=== PATIENT | male | born 1995 | race Caucasian/White ===

== ENCOUNTER 2017-02-10 13:44 | Emergency (ER) | payer BC ==
[2017-02-10 13:53] VITALS: BP 133/74
--- NOTE | 2017-02-10 14:14 | RAD ---
INDICATION: Evaluate for pneumothorax. History of right-sided pneumothorax. COMPARISON: Chest x-ray November 13, 2015 TECHNIQUE: PA and lateral dual-energy views were obtained. FINDINGS: Bones/Soft Tissues: There are no acute bony findings. Cardiomediastinal: The cardiomediastinal silhouette is normal. Lungs: There are no infiltrates. There is a small left-sided pneumothorax. There is 1.6 cm of visceral-parietal surface separation at the apex. There is resolution of the right-sided pneumothorax. Pleura: There are no pleural effusions. Other: None IMPRESSION: SMALL LEFT-SIDED PNEUMOTHORAX.
--- NOTE | 2017-02-10 14:55 | UC ---
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 HAD A SPONTANEOUS RIGHT SIDED PNEUMOTHX 11/2015 AND THIS FEELS THE SAME ONLY LEFT SIDED. NO FEVER, N/V. - History of Current Complaint Chief Complaint: UCChestPain Stated Complaint: CHEST PAIN, DIFFICULTY BREATHING Time Seen by Provider: 02/10/17 14:53 Hx Obtained From: Patient Onset/Duration: Sudden Onset, Lasting Minutes, Still Present Timing: Constant Current Severity: Moderate Dyspnea At: Rest Aggrevating Factors: Deep Breaths Alleviating Factors: Nothing Associated Signs & Symptoms: Negative: Fever, Chills, Diaphoresis, Dizzy Related History: Similar Episode - 11/2015 - RIGHT SIDED PNEUMOTHORAX 2.5CM - Allergy/Home Medications Allergies/Adverse Reactions: Allergies Allergy/AdvReac Type Severity Reaction Status Date / Time STEROIDS Allergy Rash Uncoded 11/18/16 11:05 PMH/Surg Hx/FS Hx/Imm Hx - Additional Past Medical History Additional PMH: SPONTANEOUS PNEUMOTHORAX 2014 Endocrine History Of: Denies: Diabetes, Thyroid Disease Cardiovascular History Of: Denies: Cardiac Disorders, Hypertension, Pacemaker/ICD Respiratory History Of: Reports: Asthma Denies: COPD GI/ History Of: Denies: Ulcer - Surgical History Surgical History: None - Family History Known Family History: Positive: Unknown - PT ADOPTED - Social History Alcohol Use: None Substance Use Type: None Smoking Status (MU): Never Smoked Tobacco Review of Systems Constitutional: Negative Respiratory: Shortness Of Breath Cardiovascular: Chest Pain Gastrointestinal: Negative All Other Systems Reviewed And Are Negative: Yes Physical Exam Triage Information Reviewed: Yes Appearance: Well-Appearing, No Pain Distress, Well-Nourished Vital Signs: Initial Vital Signs Temp 97.7 F 02/10/17 13:49 Pulse 88 02/10/17 13:49 Resp 20 02/10/17 13:49 BP 133/74 02/10/17 13:49 Pulse Ox 98 02/10/17 13:49 Eyes: Positive: Conjunctiva Clear ENT: Positive: Hearing grossly normal Neck: Positive: Supple Respiratory: Positive: Lungs clear, No respiratory distress, No accessory muscle use, Decreased breath sounds - LEFT APEX SLIGHTLY DIMINISHED Cardiovascular Exam: Normal Abdomen Description: Positive: Bruit Musculoskeletal: Positive: No Edema Neurological: Positive: Alert Psychological: Positive: Age Appropriate Behavior Skin: Negative: rashes Diagnostics - Radiology CHEST XRAY Xray Interpretation: Positive (See Comments) - SMALL 1.6CM LEFT-SIDED PNEUMOTHORAX. Radiology Interpretation Completed By: Radiologist Shortness of Breath Dx - Differential Dx/Diagnosis Provider Diagnoses: SPONTANEOUS LEFT SIDED PNEUMOTHORAX 1.6CM - Physician Notification/Consults Discussed Patient Care With: RAFFI ABDI Time Discussed With Above Provider: 15:08 - TO [facility] BY PRIVATE CAR Discharge - Discharge Plan Condition: Stable Disposition: AGAINST MEDICAL ADVICE Referrals: Oracio Haider MD [Primary Care Provider] -
== END 2017-02-10 15:19 | disposition left against medical advice (07) ==
LOC: UCEAST 13:44
DX: J93.9 Pneumothorax, unspecified (principal); Z53.21 Procedure and treatment not carried out due to patient leaving prior to being seen by health care provider
CPT/HCPCS: 71020

== ENCOUNTER 2017-02-10 15:33 | Emergency (ER) | payer BC ==
[2017-02-10] MEDS ORDERED: oxyCODONE/Acetamin 5/325 MG* TAB PO ONE (17:12)
--- NOTE | 2017-02-10 17:49 | RAD ---
INDICATION: Follow-up left-sided pneumothorax COMPARISON: Same day chest x-ray acquired at 1355 hours TECHNIQUE: PA and lateral views of the chest were obtained. FINDINGS: The heart and mediastinum are normal in size and contour. On the inspiration views there is a small left-sided pneumothorax with the lung apex measuring 2.5 cm from the apex of the chest wall. The pneumothorax increases to 3.7 cm on the expiration views. Visualized bones are normal for the patient's age. There is no radiographic evidence of free air beneath the diaphragm IMPRESSION: THERE IS BEEN SMALL INTERVAL INCREASE IN THE SIZE OF THE LEFT-SIDED PNEUMOTHORAX RELATIVE TO THE CHEST X-RAY ACQUIRED AT 1355 HOURS.
[2017-02-10] MEDS ORDERED: NS 0.9% 1000 ML* 1,000 ML IV ONE (19:34)
--- NOTE | 2017-02-10 20:56 | RAD ---
Indication: LEFT pneumothorax. Post chest tube placement. Comparison: February 10, 2017 1731 hours Technique: Inspiratory and expiratory upright PA chest radiographs. Report: Heimlich valve small caliber LEFT apical chest tube in place. Minimal LEFT apical pneumothorax visualized at the level of the posterior segment of the LEFT third rib significantly decreased compared with the prior exam. Negative for increase in size of the pneumothorax on expiration. Negative for mediastinal shift. Potential small bilateral apical blebs. Clear pleural spaces. The heart, pulmonary vasculature, and mediastinal contours are unremarkable. No rib fracture evident. IMPRESSION: Near complete resolution of LEFT pneumothorax post Heimlich valve LEFT apical chest tube placement.
[2017-02-10 21:22] VITALS: BP 126/62
--- NOTE | 2017-02-11 07:32 | ED ---
Shaun Ly Billy, scribed for Dwaine Broussard MD on 02/10/17 at 1600 . Shortness of Breath - HPI Summary HPI Summary: Patient is a 21 year-old male with a history of pneumothorax coming to [facility] with a complaint of shortness of breath that started suddenly with no known cause earlier today. Patient was seen at [facility], where a chest x-ray revealed a small left pneumothorax. He was transferred here to the ED for further workup and evaluation. Here in the ED, he continues to complain of shortness of breath , saying that he has difficulty with deep breaths. He also reports mild chest pain, but otherwise states that he is quite comfortable. - History of Current Complaint Chief Complaint: EDShortnessOfBreath Time Seen by Provider: 02/10/17 15:44 Hx Obtained From: Patient Onset/Duration: Sudden Onset Timing: Constant Current Severity: Moderate Dyspnea At: Rest Aggrevating Factors: Nothing Alleviating Factors: Nothing - Allergy/Home Medications Allergies/Adverse Reactions: Allergies Allergy/AdvReac Type Severity Reaction Status Date / Time STEROIDS Allergy Rash Uncoded 11/18/16 11:05 PMH/Surg Hx/FS Hx/Imm Hx Endocrine/Hematology History: Denies: Hx Diabetes, Hx Thyroid Disease Cardiovascular History: Denies: Hx Hypertension, Hx Pacemaker/ICD, Other Cardiovascular Problems/ Disorders Respiratory History: Reports: Hx Asthma Denies: Hx Chronic Obstructive Pulmonary Disease (COPD) GI History: Denies: Hx Ulcer Sensory History: Denies: Hx Hearing Aid Neurological History: Reports: Other Neuro Impairments/Disorders - CONCUSION 2009 Psychiatric History: Reports: Hx Attention Deficit Hyperactivity Disorder Denies: Hx Panic Disorder Infectious Disease History: Denies: Hx Hepatitis, Hx Human Immunodeficiency Virus (HIV), Traveled Outside the [place] in Last 30 Days - Family History Known Family History: Positive: Unknown - PT ADOPTED - Social History Alcohol Use: None Substance Use Type: Reports: None Smoking Status (MU): Never Smoked Tobacco Review of Systems Negative: Fever Positive: Chest Pain Positive: Shortness Of Breath All Other Systems Reviewed And Are Negative: Yes Physical Exam - Summary Physical Exam Summary: VITAL SIGNS: Reviewed. GENERAL: Patient is a well developed, thin male who is lying comfortable in the stretcher. Patient is not in any acute respiratory distress. Speaking in full sentences. HEAD AND FACE: Normocephalic EYES: PERRLA, EOMI x 2. EARS: Hearing grossly intact. MOUTH: Oropharynx within normal limits. NECK: Supple, trachea is midline, no adenopathy, no JVD, no carotid bruit. CHEST: Symmetric, no tenderness at palpation LUNGS: Clear to auscultation bilaterally. No wheezing or crackles. CVS: Regular rate and rhythm, S1 and S2 present, no murmurs or gallops appreciated. ABDOMEN: Soft, non-tender. Bowel sounds are normal. No abdominal abnormal pulsations. EXTREMITIES: Full ROM in all major joints, no edema, no cyanosis or clubbing. NEURO: Alert and oriented x 3. No acute neurological deficits. Speech is normal and follows commands. SKIN: Dry and warm Triage Information Reviewed: Yes Vital Signs On Initial Exam: Initial Vitals Temp Pulse Resp BP Pulse Ox 97.9 F 85 16 112/72 100 02/10/17 15:41 02/10/17 15:41 02/10/17 15:41 02/10/17 15:41 02/10/17 15:41 Vital Signs Reviewed: Yes Diagnostics - Vital Signs Vital Signs Temp Pulse Resp BP Pulse Ox 02/10/17 15:41 97.9 F 85 16 112/72 100 - Laboratory Lab Statement: Any lab studies that have been ordered have been reviewed, and results considered in the medical decision making process. - Radiology CXR Radiology Interpretation Completed By: Radiologist - THERE IS BEEN SMALL INTERVAL INCREASE IN THE SIZE OF THE LEFT-SIDED PNEUMOTHORAX RELATIVE TO THE CHEST X-RAY ACQUIRED AT 1355 HOURS. Re-Evaluation - Re-Evaluation First Eval Re-Evaluation Time: 16:26 Comment: Plan for discharge reviewed and discussed with patient and mother. Second Eval Re-Evaluation Time: 17:54 Comment: CXR report discussed with the patient and mother. Plan for pigtail tube discussed. Course/Dx - Course Assessment/Plan: Patient is a 21 year-old male with a history of pneumothorax coming to [facility] with a complaint of shortness of breath that started suddenly with no known cause earlier today. Patient was seen at [facility], where a chest x- ray revealed a small left pneumothorax. He was transferred here to the ED for further workup and evaluation. Here in the ED, he continues to complain of shortness of breath, saying that he has difficulty with deep breaths. He also reports mild chest pain, but otherwise states that he is quite comfortable. I discussed the findings that the patient is having a pneumothorax with Dr. Hernandez who recommended that he have a repeat CXR 4 hours after the first. Second CXR shows small interval increase to the left-sided pneumothorax. I discussed the findings with Dr. Hernandez and he agrees to see the patient in the ED and do a pigtail tube. Patient will be signed out to Dr. Abreu, the next ER attending at shift change, pending Dr. Hernandez's evaluation and possible pigtail tube placement. - Diagnoses Differential Diagnosis/HQI/PQRI: Positive: Pneumonia, Pneumothorax Provider Diagnoses: Pneumothorax - Physician Notifications Discussed Care of Patient With: Dr. Hernandez (surgeon) @ 1629: patient care discussed. Repeat CXR at 1715, and if no change, follow up with Dr. Casas as outpatient. Dr. Hernandez (surgeon) @ 1753: will see patient in the ED to place pigtail tube. Dr. Hernandez (surgeon) @ 1908: arrived in the ED. Discharge - Discharge Plan Condition: Stable Disposition: HOME Discharge Disposition Comment: Signed out to Dr. Abreu pending surgeon's evaluation. Patient Education Materials: Spontaneous Pneumothorax (ED) Referrals: Memo Hernandez MD [Medical Doctor] - 1 Day (Follow up with Dr. Hernandez, surgery, tomorrow.) Oracio Haider MD [Primary Care Provider] - The documentation as recorded by the Shaun salas Billy accurately reflects the service I personally performed and the decisions made by me, Dwaine Broussard MD.
--- NOTE | 2017-02-11 10:13 | CONS ---
SURGICAL CONSULTATION AND PROCEDURE NOTE: DATE OF CONSULT: 02/10/17 LOCATION: Emergency room. HISTORY OF PRESENT ILLNESS: I was contacted by the emergency room staff to evaluate Sarmad Mitchell who presented earlier today to Urgent Care with complaints of sudden shortness of breath and left-sided chest discomfort. Workup included an x-ray which showed a left-sided pneumothorax felt to be spontaneous. The patient has a history of a right-sided spontaneous pneumothorax approximately 13 months ago. I reviewed the images and noted that it was a small left-sided pneumothorax. The patient was transferred to the ER from Urgent Care, and I made the recommendation for a followup chest x-ray which happened approximately 4 hours later. This x-ray again was also reviewed and showed an increase in size of the left-sided pneumothorax. The patient described that he had been feeling somewhat better since the onset of the symptoms. He did not require oxygenation. His pain resolved. The patient described similar symptoms last year when he was diagnosed with a right- sided pneumothorax. This was treated without any intervention. PAST MEDICAL HISTORY: Asthma. PAST SURGICAL HISTORY: None. MEDICATIONS: 1. Albuterol. 2. Vyvanse. ALLERGIES: He is ALLERGIC TO STEROIDS. FAMILY HISTORY: Noncontributory. The patient is adopted. SOCIAL HISTORY: He does not smoke, drink, or do IV drugs. He is a student of [employer]. Lives with his aunt. He does not do drugs. He denies any use of a water pipe. No recent traumas. REVIEW OF SYSTEMS: No fevers, no chills. Shortness of breath as described. No palpitations, but chest pain as described above. No abdominal complaints. No significant weight loss or weight gain. No metabolic disorders. Never been worked up for any Marfan-type diseases. He does seem to suffer from anxiety. PHYSICAL EXAM: He is 5 feet 7 inches, 108 pounds. His body mass index is 17. Afebrile. Vital signs are stable. Temperature 99.1. Alert and oriented x3, in no apparent distress. Head, Ears, Eyes and Throat: Normocephalic, atraumatic. Sclerae anicteric. Mucous membranes are dry. Chest: Clear breath sounds bilaterally. No pain. No crepitance. Trachea midline. Abdomen without any positive findings. Extremities: Within normal limits. DIAGNOSTIC STUDIES/LAB DATA: Chest x-ray is reviewed. IMPRESSION: Spontaneous pneumothorax on the left in patient with body mass index 17 and a history of spontaneous pneumothorax on the right in the past treated nonoperatively. This has gotten larger in size over the course of the day, and I recommend intervention, namely a pneumothorax kit tube placement. DESCRIPTION OF PROCEDURE: I outlined the details of the procedure going over the risks, benefits and alternatives to the patient and his aunt, they agreed with the procedure. He was marked on the left side of the chest. Time-out was performed appropriately after the area was prepped thoroughly and draped. Injection of lidocaine along the proposed incision site at the second intercostal space along the mid clavicular line was made. Once the incision was made, the Heimlich valve type tubing was placed into the left chest, allowed to advance over the needle stylet. A gush of air was encountered and this was connected to the appropriate tubing and sutured to the skin with the provided silk suture. Sterile dressing was applied. Upon completion of the procedure, the patient was diaphoretic, clammy, speaking normally, but had a systolic blood pressure in the low 60s with a heart rate that remained in the 60s. The emergency room physician was contacted. Plan was for a bolus of fluid. PLAN: Plan at this point will be to have patient recover from what appears to be a vasovagal response. I do not believe this is suggestive of any ongoing chest bleeding or any complication of the procedure at this point. The patient will receive a chest x-ray shortly. If the chest x-ray shows improvement, then we will look towards sending patient home with the Heimlich valve. I have given him our phone number to our office. He will contact our office and set up an appointment on Wednesday. He will have to get a chest x-ray prior to that appointment. The patient is aware of this. This case was discussed with the emergency room doctor who will, in all likelihood, discharge the patient later today. If the chest x-ray shows no improvement, the patient may require admission or placement of the tubing to Pleur-evac, or even a larger caliber chest tube. He is aware of this plan. CC: Oracio Haider; [facility].* [id number] #: [id number]
== END 2017-02-10 21:22 | disposition home or self-care (01) ==
LOC: ED 15:33
DX: J93.9 Pneumothorax, unspecified (principal); R06.02 Shortness of breath; R07.9 Chest pain, unspecified
CPT/HCPCS: 71020; 99285; A9270-GY

== ENCOUNTER 2018-03-25 09:23 | Emergency (ER) | payer BC ==
[2018-03-25 09:49] VITALS: BP 114/71
--- NOTE | 2018-03-25 09:51 | UC ---
Respiratory Complaint HPI - HPI Summary HPI Summary: 22 yo male presents with feeling "popping" sensations in his anterior right lung intermittently over the last week. He tells me that he has had 2 events of spontaneous pneumothorax in the past - most recent was about a year ago in his left lung that required surgery. He called his surgeon about this RIGHT lung popping sensation today and was advised to get a CXR for evaluation. Currently he denies fever, chills, cough, SOB, FRIEDMAN. - History of Current Complaint Chief Complaint: UCRespiratory Stated Complaint: POPPING IN LUNG Time Seen by Provider: 03/25/18 09:51 Hx Obtained From: Patient Severity Initially: Moderate Severity Currently: Severe Pain Intensity: 7 Pain Scale Used: 0-10 Numeric - Allergies/Home Medications Allergies/Adverse Reactions: Allergies Allergy/AdvReac Type Severity Reaction Status Date / Time sulfamethoxazole Allergy Intermediate Rash Verified 03/25/18 09:51 montelukast Allergy Mild Unknown Verified 03/25/18 09:51 Reaction Details PMH/Surg Hx/FS Hx/Imm Hx - Additional Past Medical History Additional PMH: Left lung pneumothroax Previously Healthy: Yes - Surgical History Surgical History: None Surgery Procedure, Year, and Place: left lung 2017 PThorax - Family History Known Family History: Positive: None, Unknown - PT ADOPTED Family History: NON CONTRIBUTORY - Social History Occupation: Student Lives: With Family Alcohol Use: None Substance Use Type: None Smoking Status (MU): Never Smoked Tobacco - Immunization History Most Recent Influenza Vaccination: 2016 Most Recent Pneumonia Vaccination: none Review of Systems Constitutional: Negative Skin: Negative Respiratory: Other - Right lung "popping" Cardiovascular: Negative Gastrointestinal: Negative Neurovascular: Negative Musculoskeletal: Negative Neurological: Negative Psychological: Negative All Other Systems Reviewed And Are Negative: Yes Physical Exam - Summary Physical Exam Summary: GENERAL: NAD. WDWN. No pain distress. SKIN: No rashes, sores, lesions, or open wounds. HEENT: Head: AT/NC Eyes: EOM intact. Conjunctiva clear without inflammation or discharge. Ears: Hearing grossly normal. TMs intact, no bulging, erythema, or edema. Nose: Nasal mucosa pink and moist. NTTP maxillary and frontal sinus. Throat: Posterior oropharynx without exudates, erythema, or tonsillar enlargement. Uvula midline. NECK: Supple. Nontender. No lymphadenopathy. CHEST: CTAB. No r/r/w. No accessory muscle use. Breathing comfortably and in no distress. CV: RRR. Without m/r/g. Pulses intact. Brisk cap refill. NEURO: Alert. CN II-XII grossly intact. PSYCH: Age appropriate behavior. Triage Information Reviewed: Yes Vital Signs: Initial Vital Signs Temp 99.1 F 03/25/18 09:45 Pulse 67 03/25/18 09:45 Resp 20 03/25/18 09:45 BP 114/71 03/25/18 09:45 Pulse Ox 100 03/25/18 09:45 Vital Signs Reviewed: Yes Diagnostic Evaluation - Laboratory O2 Sat by Pulse Oximetry: 100 Respiratory Course/Dx - Course Course Of Treatment: CXR: IMPRESSION: Hyperinflated lung brizuela without evidence of pneumonia. Spoke to Dr. Maravilla of radiology at 1015 and he did not see any evidence or indication for pneumothroax. No Chest CT indicated. Exam WNL. - Differential Dx/Diagnosis Provider Diagnoses: Right lung popping Discharge - Sign-Out/Discharge Documenting (check all that apply): Discharge/Admit/Transfer - Discharge Plan Condition: Stable Disposition: HOME Patient Education Materials: Spontaneous Pneumothorax (ED) Referrals: Oracio Haider MD [Primary Care Provider] - Additional Instructions: If you develop a fever, shortness of breath, chest pain, new or worsening symptoms - please call your PCP or go to the ED. - Billing Disposition and Condition Condition: STABLE Disposition: HOME
--- NOTE | 2018-03-25 10:11 | RAD ---
Indication: Right lung pain. 2 views of the chest including dual energy PA views demonstrates no mediastinal shift. Hyperinflated lung brizuela are noted. No evidence of alveolar consolidation is noted. IMPRESSION: Hyperinflated lung brizuela without evidence of pneumonia.
== END 2018-03-25 10:40 | disposition home or self-care (01) ==
LOC: UCEAST 09:23
DX: R09.89 Other specified symptoms and signs involving the circulatory and respiratory systems (principal); Z88.1 Allergy status to other antibiotic agents; Z88.8 Allergy status to other drugs, medicaments and biological substances
CPT/HCPCS: 71046; 99211; G0463

== ENCOUNTER 2018-11-04 07:19 | Emergency (ER) | payer BC, OTHER ==
[2018-11-04 07:32] VITALS: BP 140/83
--- NOTE | 2018-11-04 08:14 | UC ---
Ear Complaint HPI - HPI Summary HPI Summary: PT STATES HIS AUNT WAS USING A QTIP TO CLEAN OUT HIS EARS LAST NIGHT WHEN HE FELT A SUDDEN SHARP PAIN IN HIS LEFT EAC. STARTED BLEEDING SHORTLY AFTER. HAS HEARING LOSS AT BASELINE WHICH HE STATES IS UNCHANGED. FOLLOWS ITH DR. PHILLIPS - ENT. HAS HAD NO URI SX. - History of Current Complaint Chief Complaint: UCEar Stated Complaint: BLEEDING IN EAR Time Seen by Provider: 11/04/18 07:20 Hx Obtained From: Patient Onset/Duration: Sudden Onset, Lasting Hours, Still Present Severity Initially: Moderate Severity Currently: Moderate Pain Intensity: 5 Pain Scale Used: 0-10 Numeric Aggravating Factors: Nothing Alleviating Factors: Nothing Associated Signs/Symptoms: Positive: Discharge, Hearing Loss. Negative: Foreign Body Sensation, URI Symptoms - Allergies/Home Medications Allergies/Adverse Reactions: Allergies Allergy/AdvReac Type Severity Reaction Status Date / Time sulfamethoxazole Allergy Intermediate Rash Verified 11/04/18 07:32 montelukast Allergy Mild Unknown Verified 11/04/18 07:32 Reaction Details diphenhydramine Allergy See Comment Verified 11/04/18 07:32 [From Benadryl] Home Medications: Home Medications Dexamethophenidate 15 mg PO DAILY 11/04/18 [History Confirmed 11/04/18] ValACYclovir (*) [Valtrex 500 mg (*)] 500 mg PO DAILY PRN 11/04/18 [History Confirmed 11/04/18] PMH/Surg Hx/FS Hx/Imm Hx - Additional Past Medical History Additional PMH: ADHD Respiratory History: Asthma - Surgical History Surgical History: Yes Surgery Procedure, Year, and Place: left lung 2017 PThorax - Family History Known Family History: Positive: Unknown - PT ADOPTED Family History: NON CONTRIBUTORY - Social History Alcohol Use: None Substance Use Type: None Smoking Status (MU): Never Smoked Tobacco - Immunization History Most Recent Influenza Vaccination: 2016 Most Recent Pneumonia Vaccination: none Review of Systems All Other Systems Reviewed And Are Negative: Yes Constitutional: Positive: Negative Skin: Positive: Negative ENT: Positive: Ear Ache Respiratory: Positive: Negative Cardiovascular: Positive: Negative Gastrointestinal: Positive: Negative Physical Exam Triage Information Reviewed: Yes Appearance: Well-Appearing, No Pain Distress, Well-Nourished Vital Signs: Initial Vital Signs Temp 98.7 F 11/04/18 07:26 Pulse 88 11/04/18 07:26 Resp 18 12/28/18 07:26 BP 140/83 11/04/18 07:26 Pulse Ox 100 11/04/18 07:26 Vital Signs Reviewed: Yes Eyes: Positive: Conjunctiva Clear ENT: Positive: Hearing grossly normal, TMs normal, Other - LEFT EAC WITH SMALL ABRASION POSTERIOR SURFACE. TM NORMAL Neck: Positive: Supple, Nontender, No Lymphadenopathy Respiratory: Positive: No respiratory distress, No accessory muscle use Cardiovascular: Positive: Pulses Normal Abdomen Description: Positive: Soft Musculoskeletal: Positive: No Edema Neurological: Positive: Alert Psychological: Positive: Normal Response To Family, Age Appropriate Behavior Skin: Negative: Rashes Ear Complaint Course/Dx - Course Course Of Treatment: COTTON SWAB USED TO REMOVE BLOOD CLOT FROM LEFT EAR CANAL. SMALL RAW ABRASION NOTED ON THE POSTERIOR SIDE. EARDRUM INTACT. NO INFECTION. WILL COVER WITH ANTIBIOTIC EARDROPS TO HELP PREVENT DEVELOPING INFECTION. COUNSELED ON GENTLE USE OF Q-TIPS ONLY SUPERFICIALLY. FOLLOW-UP WITH ENT IF NEEDED. - Differential Dx/Diagnosis Provider Diagnosis: Abrasion of left ear canal Discharge - Sign-Out/Discharge Documenting (check all that apply): Patient Departure All imaging exams completed and their final reports reviewed: No Studies - Discharge Plan Condition: Stable Disposition: HOME Prescriptions: Ciproflox/Dexameth OTIC.SUSP* [Ciprodex Otic*] 4 drop LEFT EAR BID #1 bottle Patient Education Materials: Ear Abrasion (ED) Referrals: Oracio Haider MD [Primary Care Provider] - If Needed Additional Instructions: YOU HAVE AN ABRASION ON THE INSIDE OF YOUR EAR CANAL. YOUR EAR DRUM IS INTACT AND THERE IS NO INFECTION AT PRESENT. YOU MAY USE THE EARDROPS TWICE DAILY FOR 5-7 DAYS TO PREVENT INFECTION. FOLLOW-UP WITH DR. PHILLIPS IF YOU DEVELOP INCREASING PAIN, PERSISTENT DRAINAGE, FEVER OR ANY OTHER CONCERNING SYMPTOMS. - Billing Disposition and Condition Condition: STABLE Disposition: Home
== END 2018-11-04 08:21 | disposition home or self-care (01) ==
LOC: UCEAST 07:19
DX: S00.412A Abrasion of left ear, initial encounter (principal); X58.XXXA Exposure to other specified factors, initial encounter; Y93.89 Activity, other specified; Y92.009 Unspecified place in unspecified non-institutional (private) residence as the place of occurrence of the external cause; Z88.1 Allergy status to other antibiotic agents; Z88.8 Allergy status to other drugs, medicaments and biological substances; F90.9 Attention-deficit hyperactivity disorder, unspecified type
CPT/HCPCS: 99212; G0463